=== PATIENT | male | born 1995 | race Two or more races ===

== ENCOUNTER 2016-09-09 18:41 | Emergency (ER) | payer SELFPAY ==
[2016-09-09 19:08] VITALS: BP 145/58
--- NOTE | 2016-09-09 19:32 | EDM.PDOC ---
ED HPI GENERAL MEDICAL PROBLEM - General Chief Complaint: General Stated Complaint: SORE THROAT/HEADACHE Time Seen by Provider: 09/09/16 19:09 Source of Information: Reports: Patient History Limitations: Reports: No Limitations - History of Present Illness INITIAL COMMENTS - FREE TEXT/NARRATIVE: The patient presents with a few complaints. He has a sore throat, headache, rash and green loose stool. This all started about 5 days ago. He has felt feverish but had no chills. His ears also hurt. He denies a cough. He has a good appetite. He has no abdominal pain, nausea or vomiting. He went to [facility] and he said that was not helpful. Onset: Gradual Duration: Day(s): (5) Quality: Reports: Sharp Severity: Moderate Improves with: Reports: None Worsens with: Reports: None Associated Symptoms: Reports: Fever/Chills, Headaches. Denies: Cough, Nausea/ Vomiting, Shortness of Breath Headache Pain Score (Numeric/FACES): 4 - Related Data Allergies Allergy/AdvReac Type Severity Reaction Status Date / Time No Known Allergies Allergy Verified 09/09/16 19:08 Home Meds: Home Meds Amoxicillin [Amoxil] 1,000 mg PO Q12HR #40 cap 09/09/16 [Rx] traMADol [Ultram] 50 - 100 mg PO Q6H PRN #10 tablet 09/09/16 [Rx] Past Medical History HEENT History: Reports: None Gastrointestinal History: Reports: None - Past Surgical History HEENT Surgical History: Reports: Other (See Below) Other HEENT Surgeries/Procedures: wisdom teeth GI Surgical History: Reports: Appendectomy Social & Family History - Family History Family Medical History: Noncontributory - Tobacco Use Smoking Status *Q: Current Every Day Smoker Years of Tobacco use: 5 Packs/Tins Daily: 0.5 - Caffeine Use Caffeine Use: Reports: None - Alcohol Use Days Per Week of Alcohol Use: 2 Number of Drinks Per Day: 4 Total Drinks Per Week: 8 - Recreational Drug Use Recreational Drug Use: No Recreational Drug Type: Reports: Marijuana/Hashish Recreational Drug Use Frequency: Daily ED ROS GENERAL - Review of Systems Review Of Systems: See Below Constitutional: Reports: Fever. Denies: Chills HEENT: Reports: Ear Pain, Throat Pain Respiratory: Reports: No Symptoms Cardiovascular: Reports: No Symptoms Endocrine: Reports: No Symptoms GI/Abdominal: Reports: No Symptoms : Reports: No Symptoms Musculoskeletal: Reports: No Symptoms Skin: Reports: Rash ED EXAM, GENERAL - Physical Exam Exam: See Below Exam Limited By: No Limitations General Appearance: Alert, No Apparent Distress Ears: Normal External Exam, Normal Canal, Normal TMs Nose: Normal Inspection Throat/Mouth: Other (Tonsilar edema and erythema) Head: Atraumatic, Normocephalic Neck: Lymphadenopathy (L), Lymphadenopathy (R) Respiratory/Chest: No Respiratory Distress, Lungs Clear, Normal Breath Sounds Cardiovascular: Regular Rate, Rhythm, No Edema, No Murmur GI/Abdominal: Soft, Non-Tender, No Organomegaly, No Mass Back Exam: Normal Inspection Extremities: Normal Inspection Neurological: Alert, Oriented, No Motor/Sensory Deficits Skin Exam: Rash (Generalized macular rash on the back and abdomen) Course - Vital Signs Last Recorded V/S: Last Vital Signs Temp 98.6 F 09/09/16 19:04 Pulse 70 09/09/16 19:04 Resp 16 09/09/16 19:04 BP 145/58 H 09/09/16 19:04 Pulse Ox 99 09/09/16 19:04 - Orders/Labs/Meds Orders: Active Orders 24 hr Category Date Time Status CULTURE STREP A CONFIRMATION [] Stat Lab 09/09/16 19:27 Results STREP SCRN A RAPID W CULT CONF [] Stat Lab 09/09/16 19:27 Results Labs: Laboratory Tests 09/09/16 Range/Units 19:40 Monoscreen Negative (NEGATIVE) - Re-Assessments/Exams Free Text/Narrative Re-Assessment/Exam: 09/09/16 19:31 I have ordered a rapid strep and mono. 09/09/16 20:09 The mono was negative. His strep was negative. I am concerned with how beefy red his tonsils are that this is a bacterial cause. I will get him on an antibiotic and some ultram for pain. Departure - Departure Time of Disposition: 10:00 Disposition: Home, Self-Care 01 Condition: Good Clinical Impression: Tonsillitis, Rash - Discharge Information Prescriptions: Amoxicillin [Amoxil] 1,000 mg PO Q12HR #40 cap traMADol [Ultram] 50 - 100 mg PO Q6H PRN #10 tablet PRN Reason: Pain Referrals: Luna Menard PA [Physician [employer]] - 1 Week Forms: ED Department Discharge Additional Instructions: Take the amoxicillin 2 pills daily and the ultram 1 to 2 pills every 6 hours as needed for pain. Follow up with Luna Menard if you are not better next week. Drink plenty of fluids and get rest. - My Orders Last 24 Hours: My Active Orders 09/09/16 19:27 CULTURE STREP A CONFIRMATION [RM] Stat STREP SCRN A RAPID W CULT CONF [RM] Stat - Assessment/Plan Last 24 Hours: My Active Orders 09/09/16 19:27 CULTURE STREP A CONFIRMATION [RM] Stat STREP SCRN A RAPID W CULT CONF [RM] Stat
== END 2016-09-09 20:27 | disposition home or self-care (01) ==
LOC: JD.ED 18:41
DX: J03.90 Acute tonsillitis, unspecified (principal); R21 Rash and other nonspecific skin eruption; F17.210 Nicotine dependence, cigarettes, uncomplicated; Z90.49 Acquired absence of other specified parts of digestive tract
CPT/HCPCS: 36415; 86308; 87081; 87430; 99283